=== PATIENT | male | born 1975 | race Caucasian/White ===

== ENCOUNTER → 2023-04-20 | Outpatient (CLI) | payer BC ==
[2023-04-20 17:52] LABS: BASO % 0.3 % (0.0-1.0); EOS # 0.1 10^3/uL (0.0-0.5); EOS % 0.5 % (0.0-3.0); HEMATOCRIT 48.1 % (42.0-52.0); HEMOGLOBIN 16.3 g/dl (13.5-17.5); LYMPH # 2.2 10^3/uL (1.5-5.0); LYMPH % 20.6 % (24.0-44.0); MEAN CORPUSCULAR HEMOGLOBIN 29.1 pg (27.0-33.0); MEAN CORPUSCULAR HGB CONC 33.9 g/dl (32.0-36.5); MEAN CORPUSCULAR VOLUME 85.9 fl (80.0-96.0); MONO # 0.6 10^3/uL (0.0-0.8); MONO % 5.2 % (2.0-8.0); NEUTROPHILS # 7.9 10^3/uL (1.5-8.5); PLATELET COUNT, AUTOMATED 281 10^3/uL (150-450); WHITE BLOOD COUNT 10.8 10^3/uL (4.0-10.0)
[2023-04-20 18:32] LABS: ALBUMIN 4.2 G/DL (3.2-5.2); ALKALINE PHOSPHATASE 70 U/L (46-116); ALT/SGPT 35 U/L (7.0-40); AST/SGOT 15 U/L (<34); BILIRUBIN,TOTAL 0.5 MG/DL (0.3-1.2); BLOOD UREA NITROGEN 16 MG/DL (9-23); CALCIUM LEVEL 9.4 MG/DL (8.5-10.1); CARBON DIOXIDE LEVEL 29 MMOL/L (20-31); CHLORIDE LEVEL 104 MMOL/L (98-107); CREATININE FOR GFR 1.05 MG/DL (0.70-1.30); GLOMERULAR FILTRATION RATE > 60.0 (>60); GLUCOSE, FASTING 95 MG/DL (60-100); POTASSIUM SERUM 4.5 MMOL/L (3.5-5.1); SODIUM LEVEL 142 MMOL/L (136-145); TOTAL PROTEIN 7.4 G/DL (5.7-8.2)
[2023-04-20 18:35] LABS: THYROXINE (T4) 8.6 UG/DL (4.5-10.9)
[2023-04-20 18:36] LABS: VITAMIN B12 LEVEL 540 PG/ML (211-911)
[2023-04-20 18:37] LABS: FOLATE > 24.0 NG/ML (>5.4); THYROID STIMULATING HORMONE 1.251 uIU/ML (0.55-4.78)
[2023-04-20 18:47] LABS: HEMOGLOBIN A1c 5.4 % (4.0-6.0)
[2023-04-20 18:55] LABS: FREE THYROXINE INDEX 2.9 % (1.4-3.8); T UPTAKE 34.2 % (22.5-37.0)
[2023-04-28 21:17] LABS: IMMUNOTYPING SERUM IGA SO 266 mg/dL (90-386); IMMUNOTYPING SERUM IGM SO 109 mg/dL (20-172); VITAMIN B1 LEVEL WHOLE BLOOD 166.7 nmol/L (66.5-200.0); VITAMIN B6,PYRIDOXAL PHOSPHATE 19.1 ug/L (3.4-65.2); VITAMIN E(ALPHA TOCOPHEROL) 13.8 mg/L (7.0-25.1); VITAMIN E(GAMMA TOCOPHEROL) 0.7 mg/L (0.5-5.5)
== END ==
LOC: M PLALAB 14:27
PROVIDERS: ATTEND Psychiatry & Neurology Neurology
DX: E11.51 Type 2 diabetes mellitus with diabetic peripheral angiopathy without gangrene (principal); E53.8 Deficiency of other specified B group vitamins; E07.9 Disorder of thyroid, unspecified